=== PATIENT | female | born 1995 | race Caucasian/White ===

== ENCOUNTER 2016-09-19 08:59 | Emergency (ER) | payer OTHER ==
[~2016-09-19] VITALS: Ht 165.1 cm; Wt 127.0 kg
[~2016-09-19 08:59] MED LIST: HYDR25TA PO; PRED20TA PO; PRED50TA PO; TRIA15OI TP
--- NOTE | 2016-09-19 09:04 | PHYS DOC ---
Past Medical History Past Medical History: Asthma, Migraines, Other Additional Past Medical Histor: factor 5 , ADD Past Surgical History: Appendectomy, Tonsillectomy Alcohol Use: Occasionally Drug Use: None Adult General Chief Complaint Chief Complaint: FOOT INJURY PAIN [facility] HPI Patient is a 20 year old female with a history of factor V Leiden deficiency who presents with left ankle and foot pain. She states this started Friday night/afternoon when she woke up after nap noticed her right foot painful. She states it hurts on the lateral aspect of her right foot up into her right side of her ankle, she denies any calf pain or swelling. She states she's never had a clot and is on no medicine for factor V Leiden deficiency. She denies any injury, fevers chills. She did get nauseated last night and vomited once and feels slightly nauseated this morning. Review of Systems Review of Systems Constitutional: Denies fever or chills [] Eyes: Denies change in visual acuity, redness, or eye pain [] HENT: Denies nasal congestion or sore throat [] Respiratory: Denies cough or shortness of breath [] Cardiovascular: No additional information not addressed in HPI [] GI: Denies abdominal pain, nausea, vomiting, bloody stools or diarrhea [] : Denies dysuria or hematuria [] Musculoskeletal: Denies back pain, positive for right foot pain Integument: Denies rash or skin lesions [] Neurologic: Denies headache, focal weakness or sensory changes [] Endocrine: Denies polyuria or polydipsia [] Current Medications Current Medications Current Medications Medications (Trade) Dose Ordered Sig/[facility] Start Time Stop Time Status Last Admin Dose Admin Acetaminophen/ Hydrocodone Bitart (Lortab 5/325) 2 tab 1X ONCE 09/19/16 09:45 09/19/16 09:46 DC Ondansetron HCl (Zofran Odt) 4 mg 1X ONCE 09/19/16 09:45 09/19/16 09:46 DC Allergies Allergies Allergies Coded Allergies Type Severity Reaction Last Updated Verified No Known Drug Allergies 12/20/15 No Physical Exam Physical Exam Constitutional: Well developed, obese, well nourished, no acute distress, non- toxic appearance. [] HENT: Normocephalic, atraumatic, bilateral external ears normal, oropharynx moist, no oral exudates, nose normal. [] Eyes: PERRLA, EOMI, conjunctiva normal, no discharge. [] Neck: Normal range of motion, no tenderness, supple, no stridor. [] Cardiovascular:Heart rate regular rhythm, no murmur [] Lungs & Thorax: Bilateral breath sounds clear to auscultation [] Abdomen: Bowel sounds normal, soft, no tenderness, no masses, no pulsatile masses. [] Skin: Warm, dry, no erythema, no rash. [] Back: No tenderness, no CVA tenderness. [] Extremities: Tender to palpation over the lateral aspect of the right foot and ankle with no obvious deformity or ecchymosis or rash, no cyanosis, no clubbing , ROM intact, no edema. Dorsal pedis pulse intact 2+ on the right foot Neurologic: Alert and oriented X 3, normal motor function, normal sensory function, no focal deficits noted. [] Psychologic: Affect normal, judgement normal, mood normal. [] Current Patient Data Vital Signs Vital Signs Date Time Temp Pulse Resp B/P Pulse Ox O2 Delivery O2 Flow Rate FiO2 09/19/16 09:08 98.1 80 18 144/77 96 Room Air 98.1 EKG EKG [] Radiology/Procedures Radiology/Procedures [facility] [address] [place], [place] [id number] IMAGING REPORT Signed PATIENT: MIRTHA MADERA ACCOUNT: [id number] : 1995 LOCATION: ER AGE: 20 SEX: F EXAM [id number] STATUS: REG ER ORD. PHYSICIAN: CHAVEZ LA MD REASON: pain over lateral aspect PROCEDURE: ANKLE RIGHT 3V; FOOT RIGHT 3V Right foot, 3 views, 09/19/2016: History: Ankle and foot pain No fracture or destructive bony lesion is seen. No arthritic changes are evident. There appears to be mild generalized soft tissue swelling. IMPRESSION: No bony abnormality is detected. Right ankle, 3 views, 09/19/2016: No fracture or dislocation is identified. No arthritic change is seen. IMPRESSION: No significant right ankle abnormality is detected. DICTATED and SIGNED BY: MARINE LEI MD DATE: 09/19/16 0946 CC: CHAVEZ LA MD; Neil WILSON MD ~ Impressions: Right foot pain Course & Med Decision Making Course & Med Decision Making Pertinent Labs and Imaging studies reviewed. (See chart for details) X-rays of the right foot and ankle addition to ultrasound did not show any abnormalities. Patient is any signs of infection or trauma to her foot. She's been discharged home with [place] 5/325 mg 1-2 tablet every 6 hours when necessary pain. She is instructed not to drive her car while taking this is a can impair judgment and make her sleepy. She's also been discharged with Zofran since she had some nausea social with this. Return precautions given she is agreeable plan being discharge in stable condition this time. Dragon Disclaimer Dragon Disclaimer This electronic medical record was generated, in whole or in part, using a voice recognition dictation system. Departure Departure Impression: Primary Impression: Foot pain, right Disposition: HOME, SELF-CARE Condition: STABLE Referrals: GWYN BYRNE MD (PCP) Patient Instructions: Foot Contusion Additional Instructions: The x-ray of your foot and ankle in addition to the ultrasound did not show any abnormalities. We are not sure why you are having pain in your foot. You will need a follow-up with her primary care physician within the next few days. Return the ER if your foot becomes more painful, swollen, red, he start running a fever, your foot turns blue or purple we have other concerns. He take [place] which is a narcotic pain medicine as directed, please do not take more than directed. Please do not drive the car while taking [place] as it can impair judgment and make you sleepy. You can use crutches as needed. Scripts Ondansetron (Zofran Odt)4 Mg Tab.rapdis1 Tab SL Q8HRS PRN NAUSEA #10 TAB Prov:CHAVEZ LA MD 09/19/16 Hydrocodone/Apap 5-325 ([place] 5-325 Tablet)1 Each Tablet1-2 Tab PO Q6HRS PRN PAIN #20 TAB Prov:CHAVEZ LA MD 09/19/16 CHAVEZ LA MD Sep 19, 2016 09:04
[2016-09-19] MEDS ORDERED: ONDANSETRON ODT 4 MG TAB.RAPDIS PO ONE (09:45)
[2016-09-19] MEDS ORDERED: HYDROCODONE/APAP 5/325MG TABLET. PO ONE (09:45)
--- NOTE | 2016-09-19 09:53 | RAD ---
Right foot, 3 views, 09/19/2016: History: Ankle and foot pain No fracture or destructive bony lesion is seen. No arthritic changes are evident. There appears to be mild generalized soft tissue swelling. IMPRESSION: No bony abnormality is detected. Right ankle, 3 views, 09/19/2016: No fracture or dislocation is identified. No arthritic change is seen. IMPRESSION: No significant right ankle abnormality is detected.
[2016-09-19] MEDS ORDERED: HYDR-971 PO (10:02)
[2016-09-19] MEDS ORDERED: ONDA4TAB10 SL (10:02)
[2016-09-19 10:20] VITALS: BP 132/62
--- NOTE | 2016-09-19 10:34 | RAD ---
Bilateral lower extremity venous ultrasound, 09/19/2016: History: Right foot pain Duplex evaluation of the deep veins in the lower extremities was attempted including grayscale, color-flow and spectral Doppler analysis. The study was limited by the patient's size. The femoral and popliteal veins demonstrate normal compressibility. No intraluminal thrombus is evident. Limited evaluation of the deep veins in the calves shows no evidence of DVT. IMPRESSION: There is no sonographic evidence of deep vein thrombosis in either lower extremity.
== END 2016-09-19 10:20 | disposition home or self-care (01) ==
LOC: ER 08:59
DX: M79.671 Pain in right foot (principal); M25.572 Pain in left ankle and joints of left foot; R11.2 Nausea with vomiting, unspecified; J45.909 Unspecified asthma, uncomplicated; G43.909 Migraine, unspecified, not intractable, without status migrainosus; F98.8 Other specified behavioral and emotional disorders with onset usually occurring in childhood and adolescence
CPT/HCPCS: 73610; 73630; 93970; 99284; Q0162

== ENCOUNTER → 2016-10-14 | Outpatient (CLI) | payer OTHER ==
[2016-09-19 10:20] VITALS: BP 132/62
[~2016-10-14] MED LIST changes: +HYDR-971 PO; +ONDA4TAB10 SL
--- NOTE | 2016-10-15 20:55 | SLEEP ---
DATE OF STUDY: 10/14/2016 ATTENDING PHYSICIAN: Dr. Gerson Vega. The patient is a 21-year-old who, weighs 280 pounds and 64 inches tall with a BMI of 48. Valencia score was 0. Home sleep study was performed to rule out JENNA. Total recording time was 392 minutes. During the night study, the patient had 4 central apneas, 4 obstructive apneas and no mixed apneas. There were 11 hypopneas. The patient's apnea-hypopnea index was 3 per hour with a supine index of 3 per hour. Review of nocturnal oximetry study revealed an average oxygen saturation of 94% with the lowest of 84%. Only 2.2 minutes were spent in oxygen saturation less than 90%. Mean heart rate was 94 beats per minute. IMPRESSION: 1. No clinically significant sleep disorder breathing. 2. No clinically significant nocturnal hypoxia. RECOMMENDATIONS: 1. Weight loss is strongly advised. 2. The patient did not qualify for CPAP. 3. Avoid INSURANCE EXECUTIVE depressants. 4. Caution regarding driving until hypersomnia is resolved. ANSELMO GONZALEZ MD DR: TONE/rachel JOB#: [id number] / [id number]
== END | disposition home or self-care (01) ==
LOC: RT 07:42
PROVIDERS: ATTEND Family Medicine
DX: R06.83 Snoring (principal); G47.33 Obstructive sleep apnea (adult) (pediatric)
CPT/HCPCS: G0399

== ENCOUNTER → 2016-12-20 | Outpatient (CLI) | payer OTHER ==
--- NOTE | 2016-12-20 11:38 | KCIC ---
EXAM: Right ankle, 3 views. HISTORY: Fall. COMPARISON: None. FINDINGS: Frontal, lateral and mortise views of the right ankle are obtained. There is no fracture, dislocation or subluxation. The ankle mortise is intact. There is diffuse ankle soft tissue prominence, physiologic or due to swelling. IMPRESSION: No acute osseous finding. Electronically signed by: Mary Saavedra MD (12/20/2016 11:34 AM)
== END | disposition home or self-care (01) ==
LOC: KCIC 10:34
PROVIDERS: ATTEND Family Medicine
DX: M25.571 Pain in right ankle and joints of right foot (principal)
CPT/HCPCS: 73610

== ENCOUNTER 2017-01-19 16:13 | Emergency (ER) | payer OTHER ==
[~2017-01-19] VITALS: Ht 162.6 cm; Wt 128.8 kg
[2017-01-19] MEDS ORDERED: IV NORMAL SALINE 1000ML BAG 1,000 ML IV SCH (16:49)
[2017-01-19 16:58] LABS: BASO # 0.1 x10^3/uL (0.0-0.2); BASO % 1 % (0-3); EOS % 4 % (0-3); LYMPH % 32 % (24-48); MEAN CORPUSCULAR HEMOGLOBIN 28 pg (25-35); MEAN CORPUSCULAR HGB CONC 34 g/dL (31-37); MEAN CORPUSCULAR VOLUME 82 fL (79-100); MONO % 9 % (0-9); NEUT % 54 % (31-73); PLATELET COUNT 276 x10^3/uL (140-400); RED BLOOD COUNT 4.62 x10^6/uL (3.50-5.40); RED CELL DISTRIBUTION WIDTH 14.7 % (11.5-14.5); WHITE BLOOD COUNT 9.2 x10^3/uL (4.0-11.0)
[2017-01-19] MEDS ORDERED: fentaNYL PF VIAL 100 MCG/2 ML VIAL IV PRN (17:00)
[2017-01-19] MEDS ORDERED: ONDANSETRON PF 4 MG/2 ML VIAL. IV ONE (17:00)
--- NOTE | 2017-01-19 17:00 | PHYS DOC ---
Past Medical History Past Medical History: Anxiety, Asthma, Depression, Migraines, Other Additional Past Medical Histor: factor 5,ADD,PANIC ATTACKS,"WEAK SPINE",PTSD, BORDERLINE DM Past Surgical History: Appendectomy, Tonsillectomy Alcohol Use: Occasionally Drug Use: None Adult General Chief Complaint Chief Complaint: SHORTNESS OF BREATH HPI HPI Patient is a 21 year old female who presents with complaint of right-sided chest pain. Patient states that her symptoms started yesterday while she was swimming. Patient states that the pain is under her right breast and worsens when she takes a deep breath. Patient also notes associated shortness of breath with her symptoms. The patient has history of morbid obesity, borderline type II diabetic, and has history of factor V clotting disorder trait. Patient has had no history of blood clots, however there is family history of pulmonary embolism. Patient denies any associated fevers. Patient has had nonproductive cough and nausea but denies any vomiting or diarrhea. Patient tried taking Toradol at home today with no relief in symptoms. Mother brought the patient to the emergency department for further evaluation. Patient rates pain as 8 out of 10. Patient states that the pain remains localized under the right breast. Review of Systems Review of Systems Constitutional: Denies fever or chills [] Eyes: Denies change in visual acuity, redness, or eye pain [] HENT: Denies nasal congestion or sore throat [] Respiratory: Cough, shortness of breath [] Cardiovascular: Chest pain, denies edema [] GI: Denies abdominal pain, nausea, vomiting, bloody stools or diarrhea [] : Denies dysuria or hematuria [] Musculoskeletal: Denies back pain or joint pain [] Integument: Denies rash or skin lesions [] Neurologic: Denies headache, focal weakness or sensory changes [] Current Medications Current Medications Current Medications Medications (Trade) Dose Ordered Sig/Macho Start Time Stop Time Status Last Admin Dose Admin Albuterol/ Ipratropium (Duoneb) 3 ml 1X ONCE 01/19/17 17:30 01/19/17 17:34 DC 01/19/17 17:41 3 ML Fentanyl Citrate (Fentanyl 2ml Vial) 50 mcg PRN Q15MIN PRN 01/19/17 17:00 01/20/17 16:59 01/19/17 17:20 50 MCG Ondansetron HCl (Zofran) 4 mg 1X ONCE 01/19/17 17:00 01/19/17 17:01 DC 01/19/17 17:18 4 MG Sodium Chloride 1,000 ml @ 1,000 mls/hr Q1H 01/19/17 16:49 01/19/17 17:48 DC 01/19/17 16:49 1,000 MLS/HR Allergies Allergies Allergies Coded Allergies Type Severity Reaction Last Updated Verified No Known Drug Allergies 12/20/15 No Physical Exam Physical Exam Constitutional: Alert, obese, afebrile, no acute distress. [] HENT: Normocephalic, atraumatic, bilateral external ears normal, oropharynx moist, no oral exudates, nose normal. [] Eyes: PERRLA, EOMI, conjunctiva normal, no discharge. [] Neck: Normal range of motion, no tenderness, supple, no stridor. [] Cardiovascular:Heart rate regular rhythm, no murmur [] Lungs & Thorax: Bilateral breath sounds clear to auscultation, right anterior chest wall tenderness to palpation [] Abdomen: Bowel sounds normal, soft, no tenderness, no masses, no pulsatile masses. [] Skin: Warm, dry, no erythema, no rash. [] Back: No tenderness, no CVA tenderness. [] Extremities: No tenderness, no cyanosis, no clubbing, ROM intact, no edema. [] Neurologic: Alert and oriented X 3, normal motor function, normal sensory function, no focal deficits noted. [] Current Patient Data Vital Signs Vital Signs Date Time Temp Pulse Resp B/P (MAP) Pulse Ox O2 Delivery O2 Flow Rate FiO2 01/19/17 17:41 100 Room Air 01/19/17 17:20 22 01/19/17 16:25 97.8 62 124/73 (90) 97.8 Lab Values Laboratory Tests Test 01/19/17 16:06 01/19/17 16:46 01/19/17 16:58 POC Urine HCG, Qualitative Hcg negative (Negative) White Blood Count 9.2 x10^3/uL (4.0-11.0) Red Blood Count 4.62 x10^6/uL (3.50-5.40) Hemoglobin 13.0 g/dL (12.0-15.5) Hematocrit 38.0 % (36.0-47.0) Mean Corpuscular Volume 82 fL (79-100) Mean Corpuscular Hemoglobin 28 pg (25-35) Mean Corpuscular Hemoglobin Concent 34 g/dL (31-37) Red Cell Distribution Width 14.7 % (11.5-14.5) H Platelet Count 276 x10^3/uL (140-400) Neutrophils (%) (Auto) 54 % (31-73) Lymphocytes (%) (Auto) 32 % (24-48) Monocytes (%) (Auto) 9 % (0-9) Eosinophils (%) (Auto) 4 % (0-3) H Basophils (%) (Auto) 1 % (0-3) Neutrophils # (Auto) 5.0 x10^3uL (1.8-7.7) Lymphocytes # (Auto) 3.0 x10^3/uL (1.0-4.8) Monocytes # (Auto) 0.8 x10^3/uL (0.0-1.1) Eosinophils # (Auto) 0.4 x10^3/uL (0.0-0.7) Basophils # (Auto) 0.1 x10^3/uL (0.0-0.2) D-Dimer (Ela) 0.34 ug/mlFEU (0.00-0.50) Sodium Level 141 mmol/L (136-145) Potassium Level 3.3 mmol/L (3.5-5.1) L Chloride Level 105 mmol/L (98-107) Carbon Dioxide Level 27 mmol/L (21-32) Anion Gap 9 (6-14) Blood Urea Nitrogen 12 mg/dL (7-20) Creatinine 0.8 mg/dL (0.6-1.0) Estimated GFR (Cockcroft-Gault) 91.4 BUN/Creatinine Ratio 15 (6-20) Glucose Level 86 mg/dL (70-99) Calcium Level 9.2 mg/dL (8.5-10.1) Magnesium Level 1.9 mg/dL (1.8-2.4) Total Bilirubin 0.5 mg/dL (0.2-1.0) Aspartate Amino Transferase (AST) 20 U/L (15-37) Alanine Aminotransferase (ALT) 32 U/L (14-59) Alkaline Phosphatase 85 U/L (46-116) Creatine Kinase 64 U/L (26-192) Creatine Kinase MB (Mass) < 0.5 ng/mL (0.0-3.6) Creatine Kinase MB Relative Index 0.8 % (0-4) Troponin I Quantitative < 0.017 ng/mL (0.000-0.055) GY-Keh-J-Type Natriuretic Peptide 33 pg/mL (0-124) Total Protein 7.4 g/dL (6.4-8.2) Albumin 3.5 g/dL (3.4-5.0) Albumin/Globulin Ratio 0.9 (1.0-1.7) L Lipase 71 U/L (73-393) L Urine Collection Type Void Urine Color Dk yellow Urine Clarity Cloudy Urine pH 5.5 Urine Specific [place] 1.020 Urine Protein Negative mg/dL (NEG-TRACE) Urine Glucose (UA) Negative mg/dL (NEG) Urine Ketones (Stick) Negative mg/dL (NEG) Urine Blood Negative (NEG) Urine Nitrite Negative (NEG) Urine Bilirubin Small (NEG) Urine Urobilinogen Dipstick 1.0 mg/dL (0.2 mg/dL) Urine Leukocyte Esterase Trace (NEG) Urine RBC 0 /HPF (0-2) Urine WBC 1-4 /HPF (0-4) Urine Squamous Epithelial Cells Mod /LPF Urine Bacteria Many /HPF (0-FEW) Urine Mucus Marked /LPF Laboratory Tests 01/19/17 16:46 Laboratory Tests 01/19/17 16:46 EKG EKG Interpreted by me: Heart rate 61, sinus rhythm, normal intervals, normal axis, no acute ST/T-wave abnormalities present [] Radiology/Procedures Radiology/Procedures One view AP chest x-ray interpreted by me: No infiltrates, no effusions, normal cardiac silhouette [] Course & Med Decision Making Course & Med Decision Making Pertinent Labs and Imaging studies reviewed. (See chart for details) Patient was treated with IV fluids, fentanyl, and Zofran in the emergency department. Patient's lab work is unremarkable and d-dimer was negative thus supporting extremely low suspicion for thrombosis. Patient's symptoms appear consistent with acute chest wall muscle strain. The patient will be prescribed Flexeril and Toradol for outpatient treatment. Advise follow-up in 3-5 days a primary doctor and return to emergency department for any worsening symptoms. I also spent 10 minutes speaking with the patient regarding smoking cessation. Patient's mother voiced gratitude towards his conversation. Patient and patient' s mother were in agreement with treatment plan upon discharge. Dragon Disclaimer Dragon Disclaimer This electronic medical record was generated, in whole or in part, using a voice recognition dictation system. Departure Departure Impression: Primary Impression: Acute chest wall pain Disposition: HOME, SELF-CARE Condition: IMPROVED Referrals: HATTIE WILSON MD (PCP) Patient Instructions: Chest Wall Pain Additional Instructions: Follow-up to primary doctor in 3-5 days for reevaluation. Return to the emergency department for any worsening symptoms. Scripts Ketorolac Tromethamine (KETOROLAC TROMETHAMINE) 10 Mg Tablet 1 TAB PO Q6HRS Y for INFLAMMATION, #20 TAB Prov: DANIELTIO LYON MD 01/19/17 Cyclobenzaprine Hcl (CYCLOBENZAPRINE HCL) 10 Mg Tablet 1 TAB PO TID Y for MUSCLE SPASMS, #30 TAB Prov: DANIELITO LYON MD 01/19/17 DANIELITO LYON MD Jan 19, 2017 17:00
[2017-01-19 17:08] LABS: BILIRUBIN,URINE SMALL (NEG); GLUCOSE,URINE NEGATIVE (NEG); NITRITE,URINE NEGATIVE (NEG); PH,URINE 5.5; PROTEIN,URINE NEGATIVE (NEG-TRACE)
[2017-01-19 17:14] LABS: CALCIUM 9.2 mg/dL (8.5-10.1); CREATININE 0.8 mg/dL (0.6-1.0)
[2017-01-19 17:15] LABS: GFR 91.4; POTASSIUM 3.3 mmol/L (3.5-5.1)
[2017-01-19 17:15] LABS: BACTERIA,URINE MANY /HPF (0-FEW); RBC,URINE 0 /HPF (0-2); SQUAMOUS EPITHELIAL CELL,UR MOD /LPF
[2017-01-19 17:20] LABS: ALBUMIN 3.5 g/dL (3.4-5.0); ALBUMIN/GLOBULIN RATIO 0.9 (1.0-1.7); MAGNESIUM 1.9 mg/dL (1.8-2.4); TOTAL BILIRUBIN 0.5 mg/dL (0.2-1.0); TOTAL PROTEIN 7.4 g/dL (6.4-8.2)
[2017-01-19 17:27] LABS: CREATINE KINASE 64 U/L (26-192)
[2017-01-19] MEDS ORDERED: IPRATRPIUM/ALBUTEROL 0.5/2.5MG 3 ML NEBU. NEB ONE (17:30)
[2017-01-19 17:35] LABS: CKMB MASS < 0.5 ng/mL (0.0-3.6)
[2017-01-19] MEDS ORDERED: CYCL10TA2 PO (17:39)
[2017-01-19] MEDS ORDERED: KETO10TA PO (17:39)
[2017-01-19 17:45] VITALS: BP 109/58
--- NOTE | 2017-01-20 06:39 | EKG ---
[facility] [address] [place] [id number] Test Date: 2017-01-19 Test Time: 17:05:13 Pat Name: MIRTHA MADERA Department: Room: Gender: F Outside Deliverer: : 1995 Requested By: DANIELITO LYON Order Number: [id number] Reading MD: Measurements Intervals [place] Rate: 61 P: 31 MI: 134 QRS: 46 QRSD: 94 T: 16 QT: 390 QTc: 394 Interpretive Statements SINUS RHYTHM QRS(T) CONTOUR ABNORMALITY CANNOT RULE OUT ANTEROSEPTAL MYOCARDIAL DAMAGE RI6.01 Unconfirmed report No previous ECG available for comparison
--- NOTE | 2017-01-20 08:12 | RAD ---
Indication chest pain and shortness of breath. A single view of the chest was obtained. Comparison is made to an examination 13 months earlier. The heart and pulmonary vessels appear normal. The lungs are clear. There is no pleural fluid or pneumothorax. A significant change compared to the previous exam is not seen. IMPRESSION: No acute or focal process. No significant change
== END 2017-01-19 17:57 | disposition home or self-care (01) ==
LOC: ER 16:13
DX: R07.89 Other chest pain (principal); R06.02 Shortness of breath; R05 Cough; R73.03 Prediabetes; F43.10 Post-traumatic stress disorder, unspecified; J45.909 Unspecified asthma, uncomplicated; F32.9 Major depressive disorder, single episode, unspecified
CPT/HCPCS: 36415; 71010; 80053; 81001; 81025; 82553; 83690; 83735; 83880; 84484; 85027; 85379; 87086; 93005; 94250; 94640; 96361; 96374; 96375; 99285; J2405; J3010; J7030; J7620

== ENCOUNTER 2017-06-17 09:52 | Emergency (ER) | payer OTHER ==
[~2017-06-17] VITALS: Ht 164.5 cm; Wt 123.4 kg
[~2017-06-17 09:52] MED LIST changes: +CYCL10TA2 PO; +KETO10TA PO
[2017-06-17 10:18] VITALS: BP 130/75
[2017-06-17] MEDS ORDERED: DEXAMETHASONE SOD PHOS 20 MG/5 ML VIAL. IV ONE (10:45)
[2017-06-17] MEDS ORDERED: KETOROLAC 30 MG/ML INJ. IV ONE (10:45)
[2017-06-17] MEDS ORDERED: MORPHINE SULFATE 10 MG/ML VIAL. IV ONE (10:45)
[2017-06-17] MEDS ORDERED: diazePAM 5 MG TABLET PO ONE (10:45)
--- NOTE | 2017-06-17 11:04 | PHYS DOC ---
Past Medical History Past Medical History: Anxiety, Asthma, Depression, Migraines, Other Additional Past Medical Histor: factor 5,ADD,PANIC ATTACKS,"WEAK SPINE",PTSD, BORDERLINE DM Past Surgical History: Appendectomy, Tonsillectomy Alcohol Use: Occasionally Drug Use: None Adult General Chief Complaint Chief Complaint: LOWER EXT PAIN HPI HPI Patient is a 21 year old female with history of anxiety, asthma and depression who presents today complaining of moderate right back pain radiating to the right lower extremity that began on when she was moving around. Patient denies any actual injury. Denies any loss of bowel bladder function. Patient denies any numbness or tingling to bilateral lower extremities. Patient states she was seen at [facility] and she was given pain medications specifically prednisone and Norflex and discharged. Patient presents today stating she still has the pain. She states she can barely move around. Her mother is in the ED today stating she would like a test to see if patient has slipped disks. Her mother is also insistent on patient being admitted for pain. Informed mother and patient we can do lumbar spine x- rays we can manage her pain in the ED considering they have an appointment with Dr. Wilson in three days we can see if her pain improves with medication in the Ed. Mother continues to insist stating they would like MRI. Informed mother we do not have any indication to do an MRI in the emergency room. Mother continued to insist on the MRI. 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 Informed mother we can give her some pain medicine in the ED and see how patient does then we can talk to the PCP but there is no indication for MRI in the ED right now. I even told mother and patient that should consider a pain clinic at some point for [facility] pain control. After lengthy discussion with the patient and mother on the redness stick expectations of the visit in the ED we agreed was 2 labs, lumbar spine x- rays, and give her some pain medicine by IV pain after that we contact Dr. Wilson on admission. Patient was also complaining she was put in a wheelchair in room D incidental being given a room with her bed. Informed patient and mother we currently do not have any open rooms with beds. Review of Systems Review of Systems Constitutional: Denies fever or chills [] GI: Denies abdominal pain, nausea, vomiting, bloody stools or diarrhea [] : Denies dysuria or hematuria [] Musculoskeletal: Right low back pain radiating to the right lower extremity Integument: Denies rash or skin lesions [] Neurologic: Denies headache, focal weakness or sensory changes [] All other systems were reviewed and found to be within normal limits, except as documented in this note. Current Medications Current Medications Current Medications Medications (Trade) Dose Ordered Sig/Macho Start Time Stop Time Status Last Admin Dose Admin Dexamethasone Sodium Phosphate (Decadron) 10 mg 1X ONCE 06/17/17 10:45 06/17/17 10:54 DC Diazepam (Valium) 5 mg 1X ONCE 06/17/17 10:45 06/17/17 10:54 DC Ketorolac Tromethamine (Toradol) 30 mg 1X ONCE 06/17/17 10:45 06/17/17 10:54 DC Morphine Sulfate 5 mg 1X ONCE 06/17/17 10:45 06/17/17 10:54 DC Allergies Allergies Allergies Coded Allergies Type Severity Reaction Last Updated Verified No Known Drug Allergies 12/20/15 No Physical Exam Physical Exam Constitutional: Well developed, well nourished, no acute distress, non-toxic appearance. [] Abdomen: Bowel sounds normal, soft, no tenderness, no masses, no pulsatile masses. [] Skin: Warm, dry, no erythema, no rash. [] Back: Patient is in a wheelchair. Diffuse paraspinal muscle tenderness to the right lower lumbar spine worse on the right SI joint, no midline lumbar spine tenderness, no CVA tenderness. Positive right leg straight raises. Extremities: No tenderness, no cyanosis, no clubbing, ROM intact, no edema. [] Neurologic: Alert and oriented X 3, normal motor function, normal sensory function, no focal deficits noted. [] Psychologic: Affect normal, judgement normal, mood normal. [] Current Patient Data Vital Signs Vital Signs Date Time Temp Pulse Resp B/P (MAP) Pulse Ox O2 Delivery O2 Flow Rate FiO2 06/17/17 10:18 97.9 53 20 130/75 (93) 98 Room Air 97.9 EKG EKG [] Radiology/Procedures Radiology/Procedures [] Course & Med Decision Making Course & Med Decision Making Pertinent Labs and Imaging studies reviewed. (See chart for details) Please see history of present illness. Patient is refusing lumbar spine x-rays, she is complaining she was put in a wheelchair in room D instead of an actual bed. Informed patient the ED is currently very full and we do not have any bed available rooms but as soon as we open up a bed she we will give her one Patient is refusing to go to x-ray stating she would like an MRI. Informed her we will not do an MRI because there is no indication for MRI in the ED today. She states she would like pain medicine prior to going to x-ray. Informed her at some as the nurse is busy right now but she/he will bring pain medicine to her as soon as they can. Informed her I had ordered labwork IV fluids and pain medicine and lumbar spine x-ray as initial testing prior to calling Dr. Wilson for admission. Patient states she is going to [facility] because they told her if she still has the pain and returns she'll be given expedited admission. Patient signed out paperwork and left AMA with the mother Siobhan Disclaimer Siobhan Disclaimer This electronic medical record was generated, in whole or in part, using a voice recognition dictation system. Departure Departure Impression: Primary Impression: Low back pain Additional Impression: Sciatica of right side Disposition: 07 AGAINST MEDICAL ADVICE Condition: STABLE Referrals: Neil WILSON MD (PCP) Problem Qualifiers Primary Impression: Low back pain Chronicity: acute Back pain laterality: right Sciatica presence: with sciatica Sciatica laterality: sciatica of right side Qualified Codes: M54.41 - Lumbago with sciatica, right side CHELSEYSILVANA AVENDAÑO MAXWELL Jun 17, 2017 11:04
== END 2017-06-17 11:05 | disposition left against medical advice (07) ==
LOC: ER 09:52
DX: M54.41 Lumbago with sciatica, right side (principal); J45.909 Unspecified asthma, uncomplicated; F41.0 Panic disorder [episodic paroxysmal anxiety]; F32.9 Major depressive disorder, single episode, unspecified; F43.10 Post-traumatic stress disorder, unspecified; G43.909 Migraine, unspecified, not intractable, without status migrainosus
CPT/HCPCS: 99283

== ENCOUNTER 2017-08-21 17:55 | Emergency (ER) | payer OTHER ==
[2017-08-21] MEDS: diphenhydrAMINE 50 MG/ML VIAL IVP ×2 (18:49)
[2017-08-21] MEDS: ONDANSETRON PF 4 MG/2 ML VIAL. IV ×2 (18:49)
[2017-08-21] MEDS: IV NORMAL SALINE 1000ML BAG 1,000 ML IV ×2 (18:49)
[2017-08-21] MEDS: KETOROLAC 15 MG/ML VIAL. IV ×2 (18:49)
[2017-08-21] MEDS: PROMETHAZINE 12.5 MG in IV DEXTROSE 5% 50 ML IV (18:50)
== END 2017-08-21 21:30 | disposition home or self-care (01) ==
LOC: ER 17:55
DX: G43.909 Migraine, unspecified, not intractable, without status migrainosus (principal); J45.909 Unspecified asthma, uncomplicated; F32.9 Major depressive disorder, single episode, unspecified; F43.10 Post-traumatic stress disorder, unspecified; Z88.8 Allergy status to other drugs, medicaments and biological substances
CPT/HCPCS: 96365; 96366; 96375; 99284-25; J1200; J1885; J2405; J2550; J7030

== ENCOUNTER 2017-10-21 19:51 | Emergency (ER) | payer OTHER ==
[2017-10-21] MEDS: IBUPROFEN 800 MG TABLET. PO (20:41)
[2017-10-21] MEDS: CYCLOBENZAPRINE 10 MG TABLET. PO (20:41)
== END 2017-10-21 20:48 | disposition home or self-care (01) ==
LOC: ER 19:51
DX: S39.012A Strain of muscle, fascia and tendon of lower back, initial encounter (principal); M54.41 Lumbago with sciatica, right side; M54.42 Lumbago with sciatica, left side; G43.909 Migraine, unspecified, not intractable, without status migrainosus; G89.29 Other chronic pain; J45.909 Unspecified asthma, uncomplicated; F43.10 Post-traumatic stress disorder, unspecified; Z90.49 Acquired absence of other specified parts of digestive tract; Z88.8 Allergy status to other drugs, medicaments and biological substances; X58.XXXA Exposure to other specified factors, initial encounter; Y93.89 Activity, other specified; Y99.8 Other external cause status; Y92.89 Other specified places as the place of occurrence of the external cause
CPT/HCPCS: 99283

== ENCOUNTER 2017-12-25 19:01 | Emergency (ER) | payer OTHER ==
[2017-12-25 19:36] LABS: BILIRUBIN,URINE NEGATIVE (NEG); CLARITY,URINE CLEAR; COLOR,URINE YELLOW; GLUCOSE,URINE NEGATIVE (NEG); NITRITE,URINE NEGATIVE (NEG); PH,URINE 6.5; PROTEIN,URINE NEGATIVE (NEG-TRACE); UROBILINOGEN,URINE 0.2 mg/dL (0.2 mg/dL)
[2017-12-25 19:43] LABS: BACTERIA,URINE FEW /HPF (0-FEW); RBC,URINE OCC /HPF (0-2); SQUAMOUS EPITHELIAL CELL,UR MOD /LPF; TRICHOMONAS,URINE PRESENT
[2017-12-25 19:51] LABS: ADD MAN DIFF? NO
[2017-12-25 19:53] LABS: BASO # 0.1 x10^3/uL (0.0-0.2); BASO % 1 % (0-3); EOS # 0.3 x10^3/uL (0.0-0.7); EOS % 2 % (0-3); HEMATOCRIT 40.4 % (36.0-47.0); HEMOGLOBIN 13.8 g/dL (12.0-15.5); LYMPH # 2.9 x10^3/uL (1.0-4.8); LYMPH % 23 % (24-48); MEAN CORPUSCULAR HEMOGLOBIN 29 pg (25-35); MEAN CORPUSCULAR HGB CONC 34 g/dL (31-37); MEAN CORPUSCULAR VOLUME 84 fL (79-100); MONO # 0.9 x10^3/uL (0.0-1.1); MONO % 7 % (0-9); NEUT # 8.4 x10^3uL (1.8-7.7); NEUT % 67 % (31-73); PLATELET COUNT 323 x10^3/uL (140-400); RED BLOOD COUNT 4.81 x10^6/uL (3.50-5.40); RED CELL DISTRIBUTION WIDTH 13.7 % (11.5-14.5); WHITE BLOOD COUNT 12.6 x10^3/uL (4.0-11.0)
[2017-12-25 20:01] LABS: ANION GAP 9 (6-14); BLOOD UREA NITROGEN 13 mg/dL (7-20); BUN/CREATININE RATIO 16 (6-20); CALCIUM 9.9 mg/dL (8.5-10.1); CARBON DIOXIDE 28 mmol/L (21-32); CHLORIDE 100 mmol/L (98-107); CREATININE 0.8 mg/dL (0.6-1.0); GFR 90.5; GLUCOSE 89 mg/dL (70-99); POTASSIUM 3.4 mmol/L (3.5-5.1); SODIUM 137 mmol/L (136-145)
[2017-12-25 20:07] LABS: ALBUMIN 3.7 g/dL (3.4-5.0); ALBUMIN/GLOBULIN RATIO 0.9 (1.0-1.7); ALK PHOS 90 U/L (46-116); ALT (SGPT) 30 U/L (14-59); AST (SGOT) 17 U/L (15-37); TOTAL BILIRUBIN 0.3 mg/dL (0.2-1.0)
[2017-12-25 20:12] LABS: D-DIMER < 0.27 ug/mlFEU (0.00-0.50)
[2017-12-25] MEDS: AZITHROMYCIN 250 MG TABLET. PO (21:26)
[2017-12-25] MEDS: cefTRIAXone IM 250 MG VIAL IM (21:27)
== END 2017-12-25 21:45 | disposition home or self-care (01) ==
LOC: ER 21:45
DX: A59.9 Trichomoniasis, unspecified (principal); K80.20 Calculus of gallbladder without cholecystitis without obstruction; G43.909 Migraine, unspecified, not intractable, without status migrainosus; J45.909 Unspecified asthma, uncomplicated; Z88.8 Allergy status to other drugs, medicaments and biological substances
CPT/HCPCS: 36415; 76705; 80053; 81001; 85025; 85379; 87086; 96372; 99285; J0696; Q0144

== ENCOUNTER 2018-04-10 17:56 | Emergency (ER) | payer OTHER ==
[~2018-04-10] VITALS: Ht 162.6 cm; Wt 121.1 kg
[~2018-04-10 17:56] MED LIST changes: +ACET325T9 PO; +ALBU2.5V5 NEB; +BENZ-8 PO; +FLUT1DIS IH; +GUAI-108 PO; +HYDR-2934 PO; +IBUP-1027 PO; +IBUP-1060 PO; +IBUP-985 PO; +MELA3TAB2 PO; +METH10TA4 PO; +METR500T PO; +PRED-220 PO; +PROM25TA10 PO; +PROVENTIL HFA6.7 GM IH; +SUMA100T3 PO; +TRAM-48 PO; +VENL75TA PO
--- NOTE | 2018-04-10 19:23 | PHYS DOC ---
Past Medical History Past Medical History: Anxiety, Asthma, Depression, Migraines, Other Additional Past Medical Histor: factor 5,ADD,PANIC ATTACKS,"WEAK SPINE",PTSD, BORDERLINE DM Past Surgical History: Appendectomy, Tonsillectomy Alcohol Use: Occasionally Drug Use: None Adult General Chief Complaint Chief Complaint: LOWER BACK PAIN OR INJURY HPI HPI Patient is a 22 year old female who presents with low back pain. She states she has a history of low back pain and when I asked if she had trauma she said no, just a "weak back". ? Pt had increased pain today but denies any trauma. She denies radiation of pain down her legs or trouble with gait. Review of Systems Review of Systems Constitutional: Denies fever or chills Respiratory: Denies cough or shortness of breath Cardiovascular: Denies chest pain. GI: Denies abdominal pain, nausea, vomiting, bloody stools or diarrhea : Denies dysuria or hematuria Musculoskeletal: Reports low back pain. Integument: Denies rash or skin lesions Neurologic: Denies headache, focal weakness or sensory changes Endocrine: Denies polyuria or polydipsia All other systems were reviewed and found to be within normal limits, except as documented in this note. Allergies Allergies Allergies Coded Allergies Type Severity Reaction Last Updated Verified prochlorperazine Allergy Intermediate 01/07/18 Yes Physical Exam Physical Exam Constitutional: Well developed, well nourished, no acute distress, non-toxic appearance. Neck: Normal range of motion, no tenderness, supple, no stridor. Cardiovascular:Heart rate regular rhythm, no murmur Lungs & Thorax: Bilateral breath sounds clear to auscultation Abdomen: Bowel sounds normal, soft, no tenderness, no masses, no pulsatile masses. Skin: Warm, dry, no erythema, no rash. Back: Pain with palpation over lumbar spine with mild pain in B buttock region with no radiation down in to legs. Extremities: No tenderness, no cyanosis, no clubbing, ROM intact, no edema. Neurologic: Alert and oriented X 3, normal motor function, normal sensory function, no focal deficits noted. Pt ambulatory in to ER room and able to climb on and off exam table without difficulty. Psychologic: Affect normal, judgement normal, mood normal. Current Patient Data Vital Signs Vital Signs Date Time Temp Pulse Resp B/P (MAP) Pulse Ox O2 Delivery O2 Flow Rate FiO2 04/10/18 19:26 98.0 60 18 129/77 (94) 99 Room Air 98.0 EKG EKG [] Radiology/Procedures Radiology/Procedures [] Course & Med Decision Making Course & Med Decision Making Pt to rest, ice/heat therapy, no lifting over 10 lbs and f/u with PCP. Dragon Disclaimer Dragon Disclaimer This electronic medical record was generated, in whole or in part, using a voice recognition dictation system. Departure Departure Impression: Primary Impression: Chronic back pain Disposition: HOME, SELF-CARE Condition: STABLE Referrals: Neil WILSON MD (PCP) Patient Instructions: Back Pain, Adult, [id number] Additional Instructions: Ice/Heat therapy and rest. Close follow up with primary care doctor. Scripts Cyclobenzaprine Hcl (CYCLOBENZAPRINE HCL) 10 Mg Tablet 1 TAB PO QHS, #21 TAB Prov: MANNY SCHAEFFER 04/10/18 Naproxen (NAPROSYN) 500 Mg Tablet 1 TAB PO BID, #20 TAB 1 Refill Prov: MANNY SCHAEFFER 04/10/18 MANNY SCHAEFFER Apr 10, 2018 19:22
[2018-04-10 19:26] VITALS: BP 129/77
[2018-04-10] MEDS ORDERED: NAPR-683 PO (19:27)
[2018-04-10] MEDS ORDERED: CYCL10TA2 PO (19:27)
== END 2018-04-10 19:52 | disposition home or self-care (01) ==
LOC: ER 17:56
DX: M54.5 Low back pain (principal); G89.29 Other chronic pain; G43.909 Migraine, unspecified, not intractable, without status migrainosus; J45.909 Unspecified asthma, uncomplicated; F43.10 Post-traumatic stress disorder, unspecified; Z90.89 Acquired absence of other organs; Z88.8 Allergy status to other drugs, medicaments and biological substances
CPT/HCPCS: 99283

== ENCOUNTER 2018-07-12 20:41 | Emergency (ER) | payer OTHER ==
[~2018-07-12] VITALS: Ht 165.1 cm; Wt 113.4 kg
[~2018-07-12 20:41] MED LIST changes: +ALBU2.5V8 IH; +HYDR-3164 PO; -HYDR-971 PO; +NAPR-683 PO; -PROVENTIL HFA6.7 GM IH
[2018-07-12 20:45] VITALS: BP 136/75
[2018-07-12 21:00] LABS: BILIRUBIN,URINE NEGATIVE (NEG); CLARITY,URINE CLEAR; COLOR,URINE YELLOW; NITRITE,URINE NEGATIVE (NEG); PROTEIN,URINE NEGATIVE (NEG-TRACE); UROBILINOGEN,URINE 0.2 mg/dL (0.2 mg/dL)
[2018-07-12 21:09] LABS: BACTERIA,URINE MODERATE /HPF (0-FEW); RBC,URINE 0 /HPF (0-2); SQUAMOUS EPITHELIAL CELL,UR MOD /LPF
[2018-07-12] MEDS ORDERED: SUMAtriptan SUCCINATE 25 MG TABLET PO ONE (21:30)
[2018-07-12] MEDS ORDERED: SUMA50TA3 PO (21:58)
--- NOTE | 2018-07-12 21:59 | PHYS DOC ---
Past Medical History Past Medical History: Anxiety, Asthma, Depression, Migraines, Other Additional Past Medical Histor: factor 5,ADD,PANIC ATTACKS,"WEAK SPINE",PTSD, BORDERLINE DM Past Surgical History: Appendectomy, Cholecystectomy, Tonsillectomy Alcohol Use: Occasionally Drug Use: Marijuana Adult General Chief Complaint Chief Complaint: HEADACHE HPI HPI Patient is a 22 year old female who presents with a migraine headache. The patient has a history of migraines but is unable to find her Imitrex. She states that she has light sensitivity times one hour. She denies nausea or vomiting. Review of Systems Review of Systems Constitutional: Denies fever or chills [] Eyes: Denies change in visual acuity, redness, or eye pain [] HENT: Denies nasal congestion or sore throat [] Respiratory: Denies cough or shortness of breath [] Cardiovascular: No additional information not addressed in HPI [] GI: Denies abdominal pain, nausea, vomiting, bloody stools or diarrhea [] : Denies dysuria or hematuria [] Musculoskeletal: Denies back pain or joint pain [] Integument: Denies rash or skin lesions [] Neurologic: See history of present illness Endocrine: Denies polyuria or polydipsia [] All other systems were reviewed and found to be within normal limits, except as documented in this note. Current Medications Current Medications Current Medications Medications (Trade) Dose Ordered Sig/Macho Start Time Stop Time Status Last Admin Dose Admin Sumatriptan Succinate (Imitrex) 25 mg 1X ONCE 07/12/18 21:30 07/12/18 21:31 DC 07/12/18 20:59 25 MG Allergies Allergies Allergies Coded Allergies Type Severity Reaction Last Updated Verified prochlorperazine Allergy Intermediate 01/07/18 Yes Physical Exam Physical Exam Constitutional: Well developed, well nourished, no acute distress, non-toxic appearance. [] HENT: Normocephalic, atraumatic, bilateral external ears normal, oropharynx moist, no oral exudates, nose normal. [] Eyes: PERRLA, EOMI, conjunctiva normal, no discharge. [] Neck: Normal range of motion, no tenderness, supple, no stridor. [] Cardiovascular:Heart rate regular rhythm, no murmur [] Lungs & Thorax: Bilateral breath sounds clear to auscultation [] Abdomen: Bowel sounds normal, soft, no tenderness, no masses, no pulsatile masses. [] Skin: Warm, dry, no erythema, no rash. [] Back: No tenderness, no CVA tenderness. [] Extremities: No tenderness, no cyanosis, no clubbing, ROM intact, no edema. [] Neurologic: Alert and oriented X 3, normal motor function, normal sensory function, no focal deficits noted, cranial nerves II through XII are grossly intact. [] Psychologic: Affect normal, judgement normal, mood normal. [] Current Patient Data Vital Signs Vital Signs Date Time Temp Pulse Resp B/P (MAP) Pulse Ox O2 Delivery O2 Flow Rate FiO2 07/12/18 20:45 97.7 70 14 136/75 (95) 7 Room Air 97.7 Lab Values Laboratory Tests Test 07/12/18 20:45 07/12/18 20:54 Urine Collection Type Unknown Urine Color Yellow Urine Clarity Clear Urine pH 6.0 Urine Specific [place] 1.010 Urine Protein Negative mg/dL (NEG-TRACE) Urine Glucose (UA) Negative mg/dL (NEG) Urine Ketones (Stick) Negative mg/dL (NEG) Urine Blood Negative (NEG) Urine Nitrite Negative (NEG) Urine Bilirubin Negative (NEG) Urine Urobilinogen Dipstick 0.2 mg/dL (0.2 mg/dL) Urine Leukocyte Esterase Negative (NEG) Urine RBC 0 /HPF (0-2) Urine WBC 1-4 /HPF (0-4) Urine Squamous Epithelial Cells Mod /LPF Urine Bacteria Moderate /HPF (0-FEW) Urine Mucus Slight /LPF POC Urine HCG, Qualitative Hcg negative (Negative) EKG EKG [] Radiology/Procedures Radiology/Procedures [] Course & Med Decision Making Course & Med Decision Making Pertinent Labs and Imaging studies reviewed. (See chart for details) []The patient was given Imitrex in the emergency department with resolution of her headache. Dragon Disclaimer Dragon Disclaimer This electronic medical record was generated, in whole or in part, using a voice recognition dictation system. Departure Departure Impression: Primary Impression: Migraine Disposition: 01 HOME, SELF-CARE Condition: STABLE Referrals: Neil WILSON MD (PCP) Patient Instructions: Migraine Headache Additional Instructions: Take the medication as directed for your migraines. Follow-up with your primary care provider for recheck in 3 days if not improving or return to the emergency department if worsening. Scripts Sumatriptan Succinate (IMITREX) 50 Mg Tablet 50 MG PO ONCE PRN for MIGRAINE HEADACHE, #20 TAB Prov: JOSE KIRBY APRN 07/12/18 JOSE KIRBY APRN Jul 12, 2018 21:59
== END 2018-07-12 22:15 | disposition home or self-care (01) ==
LOC: ER 20:41
DX: G43.909 Migraine, unspecified, not intractable, without status migrainosus (principal); F32.9 Major depressive disorder, single episode, unspecified; F41.9 Anxiety disorder, unspecified; J45.909 Unspecified asthma, uncomplicated; F43.10 Post-traumatic stress disorder, unspecified; Z88.8 Allergy status to other drugs, medicaments and biological substances
CPT/HCPCS: 81001; 81025; 87086; 99283